=== PATIENT | female | born 1995 | race Asian ===

== ENCOUNTER 2023-01-01 20:21 | Emergency (ER) | payer MEDICAID, SELFPAY ==
[2023-01-01 20:44] VITALS: BP 106/58; PULSE 88; RESP 16; TEMP 36.9; O2SAT 98; BMI 21.9
--- NOTE | 2023-01-01 20:47 | ED.GENADULT ---
HPI - General Adult General Chief complaint: Abdominal Pain <Joshua Livingston - Last Filed: 01/01/23 20:48> Stated complaint: Abdominal Pain/ test? <Joshua Livingstno - Last Filed: 01/01/23 20:48> Time Seen by Provider: 01/02/23 01:22 <Joshua Livingston - Last Filed: 01/01/23 20:48> Source: patient <Ivana Lawrence MD - Last Filed: 01/02/23 01:43> Mode of arrival: ambulatory <Ivana Lawrence MD - Last Filed: 01/02/23 01:43> Limitations: no limitations <Ivana Lawrence MD - Last Filed: 01/02/23 01:43> History of Present Illness HPI narrative: Patient comes in the emergency room complaining of feeling nauseous with no vomiting for about 2 weeks. Patient states her last period was December 06. Patient states that she has mild dysuria, no flank pain no fever or chills. Patient states that she was recently treated for urinary tract infection. For [facility] records, patient was started on nitrofurantoin. However, patient was not sure if this was safe for as she suspects that she is . Patient stop taking nitrofurantoin a few days ago. <Ivana Lawrence MD - Last Filed: 01/02/23 01:43> Related Data Home medications: Previous Rx's Medication Instructions Recorded doxylamine 10 mg-pyridoxine (vit 1 tab PO BID PRN nausea and 01/02/23 B6) 10 mg tablet,delayed release vomiting #30 tabs nitrofurantoin 100 mg PO Q12H 7 days #14 caps 01/02/23 monohydrate/macrocrystals 100 mg capsule (Macrobid) vits no.130-ferrous fum 1 tab PO DAILY #30 tabs 01/02/23 27 mg iron-folic acid 800 mcg tablet ( Vitamin) <Joshua Livingston - Last Filed: 01/01/23 20:48> Allergies/adverse reactions: Allergies Allergy/AdvReac Type Severity Reaction Status Date / Time No Known Allergies Allergy Verified 01/01/23 20:45 <Joshua Livingston - Last Filed: 01/01/23 20:48> Review of Systems Review of Systems: Constitutional : No Weight loss, No Fever, No Chills, No Night Sweats, No Fatigue, No Malaise ENT/Mouth : No Hearing loss, No Ear Pain, No Nasal Congestion, No Sinus Pain, No Hoarseness, No sore throat, No Rhinorrhea, No Swallowing Difficulty Eyes: No Eye Pain, No Swelling, No Redness, No Foreign Body, No Discharge, No Vision Changes Cardiovascular : No Chest Pain, No SOB, No Dyspnea on Exertion, No Orthopnea, No Edema, No Palpitations Respiratory : No Cough, No Sputum, No Wheezing, No Smoke Exposure, No Dyspnea Gastrointestinal : Complaining of Nausea, No Vomiting, No Diarrhea, No Constipation, No abdominal Pain, No Hematochezia, No Melena Genitourinary : no irregular bleeding, complaining of Dysuria, No Urinary Frequency, No Hematuria, No Urinary Incontinence, No Urgency, No Flank Pain, No Urinary Flow Changes, No Hesitancy Musculoskeletal : No joint pain, No Myalgias, No Joint Swelling Skin : No Skin Lesions, No rash Neuro : No Weakness, No Numbness, No Paresthesias, No Loss of Consciousness, No Dizziness, No Headache Psych : No Anxiety/Panic, No Depression, No SI/HI/AH/VH, No Social Issues, Heme/Lymph: No Bruising, No Bleeding,No Lymphadenopathy Endocrine : No Polyuria, No Polydipsia, No Temperature Intolerance <Ivana Lawrence MD - Last Filed: 01/02/23 01:43> [facility] Social History Social History: Social History Advance Directives: No Advance Directives Information Provided: No <Joshua Livingston - Last Filed: 01/01/23 20:48> Physical Exam ED Vital Signs: Vital Signs - 24 hr 01/01/23 20:44 Temperature 98.4 F Pulse Rate 88 Respiratory Rate 16 Blood Pressure 106/58 L Pulse Oximetry 98 Oxygen Delivery Method Room Air BMI result Body Mass Index 21.9 <Joshua Livingston - Last Filed: 01/01/23 20:48> Vital Signs - 24 hr 01/01/23 20:44 Temperature 98.4 F Pulse Rate 88 Respiratory Rate 16 Blood Pressure 106/58 L Pulse Oximetry 98 Oxygen Delivery Method Room Air BMI result Body Mass Index 21.9 <Ivana Lawrence MD - Last Filed: 01/02/23 01:43> Const Other: Appearance: Alert. Oriented X3. No acute distress. Eyes: Pupils equal, round and reactive to light. ENT: Pharynx normal. Neck: Normal inspection. Neck supple. No lymph nodes noted. No crepitus CVS: Normal heart rate and rhythm. Pulses normal. Normal S1 and S2 Respiratory: No respiratory distress. Breath sounds normal. No Wheezing. No rales Abdomen: Soft and nontender. No rigidity. No distention. Skin: Skin warm and dry. Normal skin color. Normal skin turgor. Extremities: No lower extremity edema. No Lacerations. No Rash Neuro: Oriented X 3. No motor deficit. No sensory deficit. Moving all extremities. No slurred speech. CN 2 through 12 grossly intact Psych: calm, cooperative, normal affect <Ivana Lawrence MD - Last Filed: 01/02/23 01:43> Course Course Course Narrative: 27-year-old female presents for evaluation of lower abdominal pain and nausea x2 weeks. She reports her last menstrual cycle was in the 24th of last month. She would like a test <Joshua Livingston - Last Filed: 01/01/23 20:48> Medical Decision Making Medical Decision Making [facility] Narrative: -patient's hCG level is 140, approximately patient is 4 weeks . Patient is a , patient denies abdominal cramping, no vaginal spotting or bleeding, no discharge -patient will follow-up with OB Gyne, patient very happy with the news and her who is at bedside also. - <Ivana Lawrence MD - Last Filed: 01/02/23 01:43> Lab Data Result Diagrams: 01/01/23 22:15 01/01/23 22:15 <Joshua Livingston - Last Filed: 01/01/23 20:48> Labs: Lab Results 01/01/23 01/01/23 01/01/23 Range/Units 22:15 22:15 22:15 WBC 8.0 (4.8-10.8) X10*3/uL RBC 4.21 (4.20-5.50) X10*6/uL Hgb 12.4 (12.0-16.0) g/dl Hct 35.8 L (37.0-47.0) % MCV 85.0 (80.0-98.0) fL MCH 29.5 (27.0-33.0) pg MCHC 34.6 (31.0-35.0) g/dl RDW 11.7 (11.0-16.0) % Plt Count 282 (160-400) X10*3/uL MPV 10.3 (9.4-12.3) fL Immature Gran % (Auto) 0.4 (0.0-0.4) % Neut % (Auto) 49.3 (45-73) % Lymph % (Auto) 38.6 (20-40) % [place] % (Auto) 9.4 (2-11) % Eos % (Auto) 2.0 (0-4) % Baso % (Auto) 0.3 (0-2) % Lymph # (Auto) 3.1 (1.2-4.9) X10*3/uL [place] # (Auto) 0.8 (0.1-1.2) X10*3/uL Eos # (Auto) 0.2 (0.0-0.4) X10*3/uL Baso # (Auto) 0.0 (0.0-0.2) X10*3/uL Abs Immat Gran (auto) 0.03 (0.00-0.03) X10*3/uL Absolute Neuts (auto) 3.9 (2.0-8.3) x10*3/uL Absolute Nucleated RBC 0.000 (0.0-0.012) X10*3/uL Nucleated RBC % (auto) 0.0 (0.0-0.2) /100WBC Sodium 140 (135-145) mmol/L Potassium 4.1 (3.3-5.1) mmol/L Chloride 109 H (96-108) mmol/L Carbon Dioxide 25 (22-29) mmol/L Anion Gap 10 L (12-20) BUN 16 (9-16) mg/dL Creatinine 0.75 (0.5-1.4) mg/dL Estim Creat Clear Calc 89.8 Estimated GFR > 60 Random Glucose 86 (60-115) mg/dL Calcium 9.0 (8.4-10.2) mg/dL Total Bilirubin 0.4 (0.0-1.0) mg/dL AST 15 (5-31) U/L ALT 11 (0-31) U/L Alkaline Phosphatase 62 (39-117) U/L Total Protein 6.4 L (6.5-8.0) g/dL Albumin 4.2 (3.5-5.0) g/dL Lipase 18 (8-78) U/L Beta HCG, Quant 140 mIU/mL Urine Color Yellow Urine Appearance Clear Urine pH 6.0 (5.0-9.0) Ur Specific [place] 1.025 (1.005-1.025) Urine Protein Negative (Neg-Trace) mg/dL Urine Glucose (UA) Negative (Negative) mg/dL Urine Ketones Trace (Negative) mg/dL Urine Blood Negative (Negative) Urine Nitrite Negative (Negative) Ur Leukocyte Esterase Small (1+) H (Negative) Urine RBC 0-2 (0-2) /HPF Urine WBC 0-5 (0-5) /HPF Ur Squamous Epith Cells 6-10 (0-2) /HPF Urine Bacteria Trace (None Seen) Hyaline Casts 0-2 (0-2) /LPF <Joshua Livingston - Last Filed: 01/01/23 20:48> Lab Results 01/01/23 01/01/23 01/01/23 Range/Units 22:15 22:15 22:15 WBC 8.0 (4.8-10.8) X10*3/uL RBC 4.21 (4.20-5.50) X10*6/uL Hgb 12.4 (12.0-16.0) g/dl Hct 35.8 L (37.0-47.0) % MCV 85.0 (80.0-98.0) fL MCH 29.5 (27.0-33.0) pg MCHC 34.6 (31.0-35.0) g/dl RDW 11.7 (11.0-16.0) % Plt Count 282 (160-400) X10*3/uL MPV 10.3 (9.4-12.3) fL Immature Gran % (Auto) 0.4 (0.0-0.4) % Neut % (Auto) 49.3 (45-73) % Lymph % (Auto) 38.6 (20-40) % [place] % (Auto) 9.4 (2-11) % Eos % (Auto) 2.0 (0-4) % Baso % (Auto) 0.3 (0-2) % Lymph # (Auto) 3.1 (1.2-4.9) X10*3/uL [place] # (Auto) 0.8 (0.1-1.2) X10*3/uL Eos # (Auto) 0.2 (0.0-0.4) X10*3/uL Baso # (Auto) 0.0 (0.0-0.2) X10*3/uL Abs Immat Gran (auto) 0.03 (0.00-0.03) X10*3/uL Absolute Neuts (auto) 3.9 (2.0-8.3) x10*3/uL Absolute Nucleated RBC 0.000 (0.0-0.012) X10*3/uL Nucleated RBC % (auto) 0.0 (0.0-0.2) /100WBC Sodium 140 (135-145) mmol/L Potassium 4.1 (3.3-5.1) mmol/L Chloride 109 H (96-108) mmol/L Carbon Dioxide 25 (22-29) mmol/L Anion Gap 10 L (12-20) BUN 16 (9-16) mg/dL Creatinine 0.75 (0.5-1.4) mg/dL Estim Creat Clear Calc 89.8 Estimated GFR > 60 Random Glucose 86 (60-115) mg/dL Calcium 9.0 (8.4-10.2) mg/dL Total Bilirubin 0.4 (0.0-1.0) mg/dL AST 15 (5-31) U/L ALT 11 (0-31) U/L Alkaline Phosphatase 62 (39-117) U/L Total Protein 6.4 L (6.5-8.0) g/dL Albumin 4.2 (3.5-5.0) g/dL Lipase 18 (8-78) U/L Beta HCG, Quant 140 mIU/mL Urine Color Yellow Urine Appearance Clear Urine pH 6.0 (5.0-9.0) Ur Specific [place] 1.025 (1.005-1.025) Urine Protein Negative (Neg-Trace) mg/dL Urine Glucose (UA) Negative (Negative) mg/dL Urine Ketones Trace (Negative) mg/dL Urine Blood Negative (Negative) Urine Nitrite Negative (Negative) Ur Leukocyte Esterase Small (1+) H (Negative) Urine RBC 0-2 (0-2) /HPF Urine WBC 0-5 (0-5) /HPF Ur Squamous Epith Cells 6-10 (0-2) /HPF Urine Bacteria Trace (None Seen) Hyaline Casts 0-2 (0-2) /LPF <Ivana Lawrence MD - Last Filed: 01/02/23 01:43> Discharge Plan Discharge Clinical Impression: , UTI (urinary tract infection) <Joshua Livingston - Last Filed: 01/01/23 20:48> Patient Disposition: Home, Self-Care <Joshua Livingston - Last Filed: 01/01/23 20:48> Instructions: Urinary Tract Infection in (ED) <Joshua Livingston - Last Filed: 01/01/23 20:48> Additional Instructions: Please follow-up with your primary care physician tomorrow. If you have any worsening or new symptoms, please return to the emergency room or call 911 <Joshua Livingston - Last Filed: 01/01/23 20:48> Prescriptions: New doxylamine-pyridoxine (vit B6) 10-10 mg tablet,delayed release (DR/EC) 1 tab PO BID PRN (Reason: nausea and vomiting) Qty: 30 0RF Vitamin 27 mg iron- 800 mcg tablet 1 tab PO DAILY Qty: 30 0RF nitrofurantoin monohyd/m-cryst [Macrobid] 100 mg capsule 100 mg PO Q12H 7 Days Qty: 14 0RF Rx Instructions: must administer with a meal/food <Joshua Livingston - Last Filed: 01/01/23 20:48> Referrals: Gorge Delgado MD [Physician] - 01/06/23 <Joshua Livingston - Last Filed: 01/01/23 20:48>
[2023-01-01 22:24] LABS: MANUAL DIFF FLAG NO
[2023-01-01 22:27] LABS: Basophils Percent Auto 0.3 % (0-2); Eosinophils Absolute Auto 0.2 X10*3/uL (0.0-0.4); Hematocrit 35.8 % (37.0-47.0); Hemoglobin 12.4 g/dl (12.0-16.0); Imm Gran Abs Auto 0.03 X10*3/uL (0.00-0.03); Imm Gran Pct Auto 0.4 % (0.0-0.4); Lymphocytes Absolute Auto 3.1 X10*3/uL (1.2-4.9); Lymphocytes Percent Auto 38.6 % (20-40); Mean Corpuscular HGB Conc 34.6 g/dl (31.0-35.0); Mean Corpuscular Hemoglobin 29.5 pg (27.0-33.0); Mean Platelet Volume 10.3 fL (9.4-12.3); Monocytes Absolute Auto 0.8 X10*3/uL (0.1-1.2); Monocytes Percent Auto 9.4 % (2-11); Neutrophils Absolute Auto 3.9 x10*3/uL (2.0-8.3); Neutrophils Percent Auto 49.3 % (45-73); Platelet Count 282 X10*3/uL (160-400); Red Blood Count 4.21 X10*6/uL (4.20-5.50); Red Cell Distribution Width 11.7 % (11.0-16.0)
[2023-01-01 22:28] LABS: Appearance Urine Clear; Color Urine Yellow; Glucose Urine UA Negative (Negative); Leukocyte Esterase Urine Small (1+) (Negative); Nitrite Urine Negative (Negative); Specific Gravity - Urine 1.025 (1.005-1.025); UMIC TRIGGER UACC YES; Urine Blood Negative (Negative); Urine Ketones Trace mg/dL (Negative); Urine Protein Negative (Neg-Trace)
[2023-01-01 22:40] LABS: Bacteria Urine Trace (None Seen); Hyaline Casts Urine 0-2 /LPF (0-2); RBC Urine 0-2 /HPF (0-2); UACC Culture Trigger YES; WBC Urine 0-5 /HPF (0-5)
[2023-01-01 22:46] LABS: Alanine Aminotransferase 11 U/L (0-31); Albumin Level 4.2 g/dL (3.5-5.0); Alkaline Phosphatase 62 U/L (39-117); Anion Gap 10 (12-20); Aspartate Amino Transferase 15 U/L (5-31); Bilirubin Total 0.4 mg/dL (0.0-1.0); Blood Urea Nitrogen 16 mg/dL (9-16); Carbon Dioxide 25 mmol/L (22-29); Chloride 109 mmol/L (96-108); Creatinine Clr Calc Pharmacy 89.8; Estimated Glomerular Filt Rate > 60; Glucose Random 86 mg/dL (60-115); Lipase 18 U/L (8-78); Potassium 4.1 mmol/L (3.3-5.1); Sodium 140 mmol/L (135-145); Total Protein 6.4 g/dL (6.5-8.0)
[2023-01-01 22:47] LABS: HCG Quantitative 140 mIU/mL
[2023-01-02 02:00] VITALS: BP 112/62; PULSE 82; RESP 16; TEMP 36.7; O2SAT 98
== END 2023-01-02 02:01 | disposition home or self-care (01) ==
PROVIDERS: Physician Assistant; Emergency Provider Emergency Medicine
DX: O23.41 Unspecified infection of urinary tract in pregnancy, first trimester (principal); N39.0 Urinary tract infection, site not specified; Z3A.01 Less than 8 weeks gestation of pregnancy
CPT/HCPCS: 36415; 80053; 81001; 83690; 84702; 85025; 87086; 87088; 87186; 99283; 99284

== ENCOUNTER 2023-01-07 02:11 | Emergency (ER) | payer MEDICAID, SELFPAY ==
--- NOTE | ~2023-01-07 | US_ITS ---
EXAMINATION: US OBSTETRICAL ULTRASOUND CLINICAL INFORMATION: Left lower quadrant pain . 4 weeks . COMPARISON: None available.. LMP: 11/30/2022. Gestational age by maternal dates is 5 weeks 3 days. Estimated date of delivery by maternal dates is 09/06/2023. TECHNIQUE: Ultrasound of the maternal pelvis is performed using transabdominal and transvaginal transducers. Transvaginal imaging is performed due to inadequate visualization transabdominally. M-mode Doppler is also performed. FINDINGS: Retroverted uterus. The uterus measures 7.5 x 2.8 x 3.9 cm. Endometrial thickness of 1.2 cm. There is no intrauterine gestational sac identified. MATERNAL ADNEXA: The right maternal ovary measures 2.7 x 1.8 x 1.6 cm. 1.5 cm corpus luteum noted. The left maternal ovary measures 2.6 x 2.2 x 1.5 cm. There is no significant maternal adnexal mass. Small volume maternal pelvic ascites. Normal arterial and venous spectral waveforms are seen at both ovaries. US/US OB pelvic and transvaginal IMPRESSION: There is no intrauterine identified. No ectopic identified. Continued close follow-up recommended.
[2023-01-07 02:17] VITALS: BP 114/64; PULSE 88; RESP 18; TEMP 36.7; O2SAT 98; BMI 21.9
[2023-01-07 02:34] LABS: Basophils Percent Auto 0.4 % (0-2); Eosinophils Absolute Auto 0.2 X10*3/uL (0.0-0.4); Eosinophils Percent Auto 2.4 % (0-4); Hematocrit 38.1 % (37.0-47.0); Hemoglobin 12.8 g/dl (12.0-16.0); Imm Gran Abs Auto 0.03 X10*3/uL (0.00-0.03); Imm Gran Pct Auto 0.4 % (0.0-0.4); Lymphocytes Absolute Auto 3.8 X10*3/uL (1.2-4.9); Lymphocytes Percent Auto 45.8 % (20-40); MANUAL DIFF FLAG NO; Mean Corpuscular HGB Conc 33.6 g/dl (31.0-35.0); Mean Corpuscular Hemoglobin 28.9 pg (27.0-33.0); Mean Platelet Volume 10.3 fL (9.4-12.3); Monocytes Absolute Auto 0.7 X10*3/uL (0.1-1.2); Monocytes Percent Auto 8.3 % (2-11); Neutrophils Absolute Auto 3.6 x10*3/uL (2.0-8.3); Neutrophils Percent Auto 42.7 % (45-73); Platelet Count 302 X10*3/uL (160-400); Red Blood Count 4.43 X10*6/uL (4.20-5.50); Red Cell Distribution Width 11.7 % (11.0-16.0); White Blood Count 8.3 X10*3/uL (4.8-10.8)
--- NOTE | 2023-01-07 02:40 | ED.ABDPAIN ---
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 nausea no vomiting patient's blood type is O-positive Related Data Previous Rx's Medication Instructions Recorded doxylamine 10 mg-pyridoxine (vit 1 tab PO BID PRN nausea and 01/02/23 B6) 10 mg tablet,delayed release vomiting #30 tabs nitrofurantoin 100 mg PO Q12H 7 days #14 caps 01/02/23 monohydrate/macrocrystals 100 mg capsule (Macrobid) vits no.130-ferrous fum 1 tab PO DAILY #30 tabs 01/02/23 27 mg iron-folic acid 800 mcg tablet ( Vitamin) Allergies Allergy/AdvReac Type Severity Reaction Status Date / Time No Known Allergies Allergy Verified 01/01/23 20:45 Review of Systems Review of Systems Yes all other systems are reviewed and are negative [facility] Social History Social History Alcohol intake: never Smoked in Last 30 Days: No Use of substances other than those prescribed or required for medical reasons: No Advance Directives: No Patient : Yes Physical Exam ED Vital Signs: Vital Signs - 24 hr 01/07/23 02:17 01/07/23 05:14 Temperature 98.1 F 98.7 F Pulse Rate 88 85 Respiratory Rate 18 14 Blood Pressure 114/64 112/62 Pulse Oximetry 98 99 Oxygen Delivery Method Room Air Room Air BMI result Body Mass Index 21.9 Appearance: Alert. Oriented X3. No acute distress. Neck: Normal inspection. Neck supple. CVS: Normal heart rate and rhythm. Pulses normal. Respiratory: No respiratory distress. Equal air entry bilateral, Abdomen: Soft , Bowel sounds are present, no mass palpable, no CVA tenderness tenderness left lower quadrant with guarding no rebound tenderness Skin: Skin warm and dry. Normal skin color. Normal skin turgor. Extremities: No lower extremity edema. No calf tenderness Neuro: Oriented X 3. No motor deficit. Medical Decision Making Medical Decision Making [facility] Narrative: Patient with miscarriage hCG was 140 now 38 with no evidence of intrauterine or ectopic actively vaginal bleeding likely miscarriage patient advised of each Differential Diagnosis Ectopic /ovarian cyst Lab Data [facility] Lab Attestation statement: I reviewed the patient's lab results. 01/07/23 02:01/07/23 02:29 Labs: Lab Results 01/07/23 01/07/23 01/07/23 Range/Units 02: 02:29 02:29 WBC 8.3 (4.8-10.8) X10*3/uL RBC 4.43 (4.20-5.50) X10*6/uL Hgb 12.8 (12.0-16.0) g/dl Hct 38.1 (37.0-47.0) % MCV 86.0 (80.0-98.0) fL MCH 28.9 (27.0-33.0) pg MCHC 33.6 (31.0-35.0) g/dl RDW 11.7 (11.0-16.0) % Plt Count 302 (160-400) X10*3/uL MPV 10.3 (9.4-12.3) fL Immature Gran % (Auto) 0.4 (0.0-0.4) % Neut % (Auto) 42.7 L (45-73) % Lymph % (Auto) 45.8 H (20-40) % [place] % (Auto) 8.3 (2-11) % Eos % (Auto) 2.4 (0-4) % Baso % (Auto) 0.4 (0-2) % Lymph # (Auto) 3.8 (1.2-4.9) X10*3/uL [place] # (Auto) 0.7 (0.1-1.2) X10*3/uL Eos # (Auto) 0.2 (0.0-0.4) X10*3/uL Baso # (Auto) 0.0 (0.0-0.2) X10*3/uL Abs Immat Gran (auto) 0.03 (0.00-0.03) X10*3/uL Absolute Neuts (auto) 3.6 (2.0-8.3) x10*3/uL Absolute Nucleated RBC 0.000 (0.0-0.012) X10*3/uL Nucleated RBC % (auto) 0.0 (0.0-0.2) /100WBC Sodium 141 (135-145) mmol/L Potassium 3.7 (3.3-5.1) mmol/L Chloride 107 (96-108) mmol/L Carbon Dioxide 24 (22-29) mmol/L Anion Gap 14 (12-20) BUN 10 (9-16) mg/dL Creatinine 0.72 (0.5-1.4) mg/dL Estim Creat Clear Calc 93.6 Estimated GFR > 60 Random Glucose 97 (60-115) mg/dL Calcium 9.2 (8.4-10.2) mg/dL Total Bilirubin 0.7 (0.0-1.0) mg/dL Direct Bilirubin 0.2 (0.0-0.5) mg/dL AST 16 (5-31) U/L ALT 9 (0-31) U/L Alkaline Phosphatase 59 (39-117) U/L Total Protein 6.7 (6.5-8.0) g/dL Albumin 4.3 (3.5-5.0) g/dL Lipase 18 (8-78) U/L Beta HCG, Quant 38 mIU/mL Urine Color Urine Appearance Urine pH (5.0-9.0) Ur Specific [place] (1.005-1.025) Urine Protein (Neg-Trace) mg/dL Urine Glucose (UA) (Negative) mg/dL Urine Ketones (Negative) mg/dL Urine Blood (Negative) Urine Nitrite (Negative) Ur Leukocyte Esterase (Negative) Urine RBC (0-2) /HPF Urine WBC (0-5) /HPF Ur Squamous Epith Cells (0-2) /HPF Urine Bacteria (None Seen) Hyaline Casts (0-2) /LPF 01/07/23 Range/Units 02:43 WBC (4.8-10.8) X10*3/uL RBC (4.20-5.50) X10*6/uL Hgb (12.0-16.0) g/dl Hct (37.0-47.0) % MCV (80.0-98.0) fL MCH (27.0-33.0) pg MCHC (31.0-35.0) g/dl RDW (11.0-16.0) % Plt Count (160-400) X10*3/uL MPV (9.4-12.3) fL Immature Gran % (Auto) (0.0-0.4) % Neut % (Auto) (45-73) % Lymph % (Auto) (20-40) % [place] % (Auto) (2-11) % Eos % (Auto) (0-4) % Baso % (Auto) (0-2) % Lymph # (Auto) (1.2-4.9) X10*3/uL [place] # (Auto) (0.1-1.2) X10*3/uL Eos # (Auto) (0.0-0.4) X10*3/uL Baso # (Auto) (0.0-0.2) X10*3/uL Abs Immat Gran (auto) (0.00-0.03) X10*3/uL Absolute Neuts (auto) (2.0-8.3) x10*3/uL Absolute Nucleated RBC (0.0-0.012) X10*3/uL Nucleated RBC % (auto) (0.0-0.2) /100WBC Sodium (135-145) mmol/L Potassium (3.3-5.1) mmol/L Chloride (96-108) mmol/L Carbon Dioxide (22-29) mmol/L Anion Gap (12-20) BUN (9-16) mg/dL Creatinine (0.5-1.4) mg/dL Estim Creat Clear Calc Estimated GFR Random Glucose (60-115) mg/dL Calcium (8.4-10.2) mg/dL Total Bilirubin (0.0-1.0) mg/dL Direct Bilirubin (0.0-0.5) mg/dL AST (5-31) U/L ALT (0-31) U/L Alkaline Phosphatase (39-117) U/L Total Protein (6.5-8.0) g/dL Albumin (3.5-5.0) g/dL Lipase (8-78) U/L Beta HCG, Quant mIU/mL Urine Color Yellow Urine Appearance Clear Urine pH 6.5 (5.0-9.0) Ur Specific [place] 1.020 (1.005-1.025) Urine Protein Negative (Neg-Trace) mg/dL Urine Glucose (UA) Negative (Negative) mg/dL Urine Ketones Negative (Negative) mg/dL Urine Blood Large (3+) H (Negative) Urine Nitrite Negative (Negative) Ur Leukocyte Esterase Trace H (Negative) Urine RBC >20 H (0-2) /HPF Urine WBC 11-20 H (0-5) /HPF Ur Squamous Epith Cells 3-5 (0-2) /HPF Urine Bacteria None Seen (None Seen) Hyaline Casts 0-2 (0-2) /LPF Radiology Impression Discussion of test interpretation with radiology: I have reviewed the radiologist's reading. Radiologist Impression: IMPRESSION: There is no intrauterine identified. No ectopic Medications Administered Discontinued Medications Generic Name Dose Route Start Last Admin Trade Name Freq PRN Reason Stop Dose Admin Oxycodone HCl 5 mg 01/07/23 04:12 01/07/23 04:35 Oxycodone Hcl Immed Release 5 Mg Tablet PO 01/07/23 04:13 5 mg ONCE ONE Administration Discharge Plan Discharge Clinical Impression: Miscarriage, threatened, early Patient Disposition: Home, Self-Care Instructions: Threatened Miscarriage (ED) Additional Instructions: Likely have a miscarriage Follow-up with PCP/ObG in 2 days Report to the ER if worsening of pain Prescriptions: No Action doxylamine-pyridoxine (vit B6) 10-10 mg tablet,delayed release (DR/EC) 1 tab PO BID PRN (Reason: nausea and vomiting) Qty: 30 0RF Vitamin 27 mg iron- 800 mcg tablet 1 tab PO DAILY Qty: 30 0RF nitrofurantoin monohyd/m-cryst [Macrobid] 100 mg capsule 100 mg PO Q12H 7 Days Qty: 14 0RF Rx Instructions: must administer with a meal/food Referrals: Gorge Delgado MD [Physician] - 2 days Interventions: ED Discharge Assessment Last Done: 01/07/23 05:28 Discharge Date/Time: 01/07/23 05:29
[2023-01-07 02:49] LABS: Appearance Urine Clear; Color Urine Yellow; Glucose Urine UA Negative (Negative); Leukocyte Esterase Urine Trace (Negative); Nitrite Urine Negative (Negative); PH 6.5 (5.0-9.0); UMIC TRIGGER UACC YES; Urine Blood Large (3+) (Negative); Urine Ketones Negative (Negative); Urine Protein Negative (Neg-Trace)
[2023-01-07 02:58] LABS: HCG Quantitative 38 mIU/mL
[2023-01-07 03:00] LABS: Alanine Aminotransferase 9 U/L (0-31); Albumin Level 4.3 g/dL (3.5-5.0); Alkaline Phosphatase 59 U/L (39-117); Anion Gap 14 (12-20); Aspartate Amino Transferase 16 U/L (5-31); Bilirubin Direct 0.2 mg/dL (0.0-0.5); Bilirubin Total 0.7 mg/dL (0.0-1.0); Blood Urea Nitrogen 10 mg/dL (9-16); Calcium 9.2 mg/dL (8.4-10.2); Carbon Dioxide 24 mmol/L (22-29); Chloride 107 mmol/L (96-108); Creatinine Clr Calc Pharmacy 93.6; Estimated Glomerular Filt Rate > 60; Glucose Random 97 mg/dL (60-115); Lipase 18 U/L (8-78); Potassium 3.7 mmol/L (3.3-5.1); Sodium 141 mmol/L (135-145); Total Protein 6.7 g/dL (6.5-8.0)
[2023-01-07 03:15] LABS: Bacteria Urine None Seen (None Seen); Hyaline Casts Urine 0-2 /LPF (0-2); RBC Urine >20 /HPF (0-2); UACC Culture Trigger YES
--- NOTE | 2023-01-07 03:16 | PC.NURSE ---
Pt A&Ox4, reports intermittent LLQ pain since 2100 last night, then having some dark blood when using the BR x 3, describes the pain as sharp. Tender to LLQ. IV line established, blood work collected and sent to lab. Pt ambulated to BR with steady gait, urine sample collected and sent to lab.
[2023-01-07] MEDS: oxyCODONE HCl Immed Release 5 MG TABLET PO (04:35)
[2023-01-07 05:14] VITALS: BP 112/62; PULSE 85; RESP 14; TEMP 37.1; O2SAT 99
== END 2023-01-07 05:29 | disposition home or self-care (01) ==
PROVIDERS: Emergency Provider Internal Medicine
DX: O20.0 Threatened abortion (principal); Z3A.01 Less than 8 weeks gestation of pregnancy
CPT/HCPCS: 36415; 76801; 76817; 80048; 80076; 81001; 83690; 84702; 85025; 87086; 99284

== ENCOUNTER 2023-01-10 15:44 | Outpatient (REF) | payer OTHER, SELFPAY ==
[2023-01-10 17:52] LABS: HCG Quantitative 6 mIU/mL
== END 2023-01-10 15:45 | disposition home or self-care (01) ==
LOC: HO.LAB 15:44
PROVIDERS: Visit Provider Advanced Practice Midwife
DX: O20.0 Threatened abortion (principal)
CPT/HCPCS: 36415; 84702

== ENCOUNTER → 2023-01-13 12:54 | Outpatient (BNVA) | payer OTHER, SELFPAY | PROVIDERS: Visit Provider Advanced Practice Midwife ==

== ENCOUNTER 2023-01-17 15:12 | Outpatient (REF) | payer OTHER, SELFPAY ==
[2023-01-17 16:11] LABS: HCG Quantitative < 2 mIU/mL
== END 2023-01-17 15:13 | disposition home or self-care (01) ==
LOC: HO.LAB 15:12
PROVIDERS: PCP Internal Medicine; Visit Provider Advanced Practice Midwife
DX: O20.0 Threatened abortion (principal)
CPT/HCPCS: 36415; 84702

== ENCOUNTER 2023-03-01 21:42 | Emergency (ER) | payer OTHER, SELFPAY ==
[2023-03-01 21:45] VITALS: BP 113/64; PULSE 83; RESP 18; TEMP 36.3; O2SAT 97; BMI 21.9
[2023-03-01 22:18] LABS: MANUAL DIFF FLAG NO
[2023-03-01 22:21] LABS: Basophils Percent Auto 0.3 % (0-2); Eosinophils Absolute Auto 0.2 X10*3/uL (0.0-0.4); Hematocrit 39.1 % (37.0-47.0); Hemoglobin 13.1 g/dl (12.0-16.0); Imm Gran Abs Auto 0.03 X10*3/uL (0.00-0.03); Imm Gran Pct Auto 0.3 % (0.0-0.4); Lymphocytes Absolute Auto 2.4 X10*3/uL (1.2-4.9); Lymphocytes Percent Auto 24.8 % (20-40); Mean Corpuscular HGB Conc 33.5 g/dl (31.0-35.0); Mean Corpuscular Hemoglobin 29.2 pg (27.0-33.0); Mean Corpuscular Volume 87.1 fL (80.0-98.0); Monocytes Absolute Auto 0.7 X10*3/uL (0.1-1.2); Monocytes Percent Auto 7.5 % (2-11); Neutrophils Absolute Auto 6.3 x10*3/uL (2.0-8.3); Neutrophils Percent Auto 65.1 % (45-73); Platelet Count 278 X10*3/uL (160-400); Red Blood Count 4.49 X10*6/uL (4.20-5.50); White Blood Count 9.7 X10*3/uL (4.8-10.8)
[2023-03-01 22:22] LABS: Appearance Urine Clear; Color Urine Yellow; Glucose Urine UA Negative (Negative); Leukocyte Esterase Urine Large (3+) (Negative); Nitrite Urine Negative (Negative); PH 5.5 (5.0-9.0); UMIC TRIGGER UACC YES; Urine Blood Large (3+) (Negative); Urine Ketones Negative (Negative); Urine Protein Trace mg/dL (Neg-Trace)
[2023-03-01 22:24] LABS: Bacteria Urine None Seen (None Seen); Hyaline Casts Urine 0-2 /LPF (0-2); Squamous Epithelial Cell Urine 0-2 /HPF (0-2); UACC Culture Trigger YES; WBC Urine >50 /HPF (0-5)
[2023-03-01 22:40] LABS: Anion Gap 11 (12-20); Blood Urea Nitrogen 15 mg/dL (9-16); Calcium 9.5 mg/dL (8.4-10.2); Carbon Dioxide 26 mmol/L (22-29); Chloride 106 mmol/L (96-108); Creatinine Clr Calc Pharmacy 97.7; Estimated Glomerular Filt Rate > 60; Glucose Random 87 mg/dL (60-115); Sodium 139 mmol/L (135-145)
[2023-03-01 22:46] LABS: HCG Quantitative < 2 mIU/mL
--- NOTE | 2023-03-01 23:44 | ED_ITS ---
HPI - Abdominal Pain General Chief Complaint: Abdominal Pain Stated Complaint: Abd pain Time Seen by Provider: 03/01/23 23:27 Source: patient Mode of arrival: ambulatory Limitations: no limitations History of Present Illness HPI narrative: Patient comes to the emergency room complaining of suprapubic pain and dysuria for 2 days. Patient believes she is . Patient denies any abdominal cramping, states that she has been spotting today. Patient denies any flank pain, fever chills. Related Data Previous Rx's Medication Instructions Recorded doxylamine 10 mg-pyridoxine (vit 1 tab PO BID PRN nausea and 01/02/23 B6) 10 mg tablet,delayed release vomiting #30 tabs nitrofurantoin 100 mg PO Q12H 7 days #14 caps 01/02/23 monohydrate/macrocrystals 100 mg capsule (Macrobid) vits no.130-ferrous fum 1 tab PO DAILY #30 tabs 01/02/23 27 mg iron-folic acid 800 mcg tablet ( Vitamin) nitrofurantoin 100 mg PO Q12H 7 days #14 caps 03/01/23 monohydrate/macrocrystals 100 mg capsule (Macrobid) phenazopyridine 100 mg tablet 100 mg PO TID 6 doses #6 tabs 03/01/23 Allergies Allergy/AdvReac Type Severity Reaction Status Date / Time No Known Allergies Allergy Verified 03/01/23 21:45 Review of Systems Review of Systems Constitutional : No Weight loss, No Fever, No Chills, No Night Sweats, No Fatigue, No Malaise ENT/Mouth : No Hearing loss, No Ear Pain, No Nasal Congestion, No Sinus Pain, No Hoarseness, No sore throat, No Rhinorrhea, No Swallowing Difficulty Eyes: No Eye Pain, No Swelling, No Redness, No Foreign Body, No Discharge, No Vision Changes Cardiovascular : No Chest Pain, No SOB, No Dyspnea on Exertion, No Orthopnea, No Edema, No Palpitations Respiratory : No Cough, No Sputum, No Wheezing, No Smoke Exposure, No Dyspnea Gastrointestinal : No Nausea, No Vomiting, No Diarrhea, No Constipation, complaining of suprapubic pain worse with urination, No Hematochezia, No Melena Genitourinary : no irregular bleeding, complaining of dysuria No Urinary Frequency, No Hematuria, No Urinary Incontinence, No Urgency, No Flank Pain, No Urinary Flow Changes, No Hesitancy Musculoskeletal : No joint pain, No Myalgias, No Joint Swelling Skin : No Skin Lesions, No rash Neuro : No Weakness, No Numbness, No Paresthesias, No Loss of Consciousness, No Dizziness, No Headache Psych : No Anxiety/Panic, No Depression, No SI/HI/AH/VH, No Social Issues, Heme/Lymph: No Bruising, No Bleeding,No Lymphadenopathy Endocrine : No Polyuria, No Polydipsia, No Temperature Intolerance [facility] Social History Social History Alcohol intake: never Advance Directives: No Advance Directives Information Provided: No Physical Exam ED Vital Signs: Vital Signs - 24 hr 03/01/23 21:45 Temperature 97.3 F Pulse Rate 83 Respiratory Rate 18 Blood Pressure 113/64 Pulse Oximetry 97 Oxygen Delivery Method Room Air BMI result Body Mass Index 21.9 Const Other: Appearance: Alert. Oriented X3. No acute distress. Well-appearing Eyes: Pupils equal, round and reactive to light. ENT: Pharynx normal. Neck: Normal inspection. Neck supple. No lymph nodes noted. No crepitus CVS: Normal heart rate and rhythm. Pulses normal. Normal S1 and S2 Respiratory: No respiratory distress. Breath sounds normal. No Wheezing. No rales Abdomen: Soft and nontender. No rigidity. No distention. Skin: Skin warm and dry. Normal skin color. Normal skin turgor. Extremities: No lower extremity edema. No Lacerations. No Rash Neuro: Oriented X 3. No motor deficit. No sensory deficit. Moving all extremities. No slurred speech. CN 2 through 12 grossly intact Psych: calm, cooperative, normal affect Medical Decision Making Medical Decision Making MDM Narrative: -I discussed with the patient that her HCG levels are negative, patient is not . -patient does have a UTI, in the ED given Macrobid and phenazopyridine Lab Data 03/01/23 22:10 03/01/23 22:10 Labs: Lab Results 03/01/23 03/01/23 03/01/23 Range/Units 22:10 22:10 22:15 WBC 9.7 (4.8-10.8) X10*3/uL RBC 4.49 (4.20-5.50) X10*6/uL Hgb 13.1 (12.0-16.0) g/dl Hct 39.1 (37.0-47.0) % MCV 87.1 (80.0-98.0) fL MCH 29.2 (27.0-33.0) pg MCHC 33.5 (31.0-35.0) g/dl RDW 12.0 (11.0-16.0) % Plt Count 278 (160-400) X10*3/uL MPV 10.0 (9.4-12.3) fL Immature Gran % (Auto) 0.3 (0.0-0.4) % Neut % (Auto) 65.1 (45-73) % Lymph % (Auto) 24.8 (20-40) % [place] % (Auto) 7.5 (2-11) % Eos % (Auto) 2.0 (0-4) % Baso % (Auto) 0.3 (0-2) % Lymph # (Auto) 2.4 (1.2-4.9) X10*3/uL [place] # (Auto) 0.7 (0.1-1.2) X10*3/uL Eos # (Auto) 0.2 (0.0-0.4) X10*3/uL Baso # (Auto) 0.0 (0.0-0.2) X10*3/uL Abs Immat Gran (auto) 0.03 (0.00-0.03) X10*3/uL Absolute Neuts (auto) 6.3 (2.0-8.3) x10*3/uL Absolute Nucleated RBC 0.000 (0.0-0.012) X10*3/uL Nucleated RBC % (auto) 0.0 (0.0-0.2) /100WBC Sodium 139 (135-145) mmol/L Potassium 4.0 (3.3-5.1) mmol/L Chloride 106 (96-108) mmol/L Carbon Dioxide 26 (22-29) mmol/L Anion Gap 11 L (12-20) BUN 15 (9-16) mg/dL Creatinine 0.69 (0.5-1.4) mg/dL Estim Creat Clear Calc 97.7 Estimated GFR > 60 Random Glucose 87 (60-115) mg/dL Calcium 9.5 (8.4-10.2) mg/dL Beta HCG, Quant < 2 mIU/mL Urine Color Yellow Urine Appearance Clear Urine pH 5.5 (5.0-9.0) Ur Specific [place] 1.010 (1.005-1.025) Urine Protein Trace (Neg-Trace) mg/dL Urine Glucose (UA) Negative (Negative) mg/dL Urine Ketones Negative (Negative) mg/dL Urine Blood Large (3+) H (Negative) Urine Nitrite Negative (Negative) Ur Leukocyte Esterase Large (3+) H (Negative) Urine RBC 11-20 H (0-2) /HPF Urine WBC >50 H (0-5) /HPF Ur Squamous Epith Cells 0-2 (0-2) /HPF Urine Bacteria None Seen (None Seen) Hyaline Casts 0-2 (0-2) /LPF Discharge Plan Discharge Clinical Impression: UTI (urinary tract infection) Patient Disposition: Home, Self-Care Instructions: Urinary Tract Infection in Women (ED) Additional Instructions: Please follow-up with your primary care physician tomorrow. If you have any worsening or new symptoms, please return to the emergency room or call 911 Prescriptions: New nitrofurantoin monohyd/m-cryst [Macrobid] 100 mg capsule 100 mg PO Q12H 7 Days Qty: 14 0RF Rx Instructions: must administer with a meal/food phenazopyridine 100 mg tablet 100 mg PO TID Qty: 6 0RF No Action doxylamine-pyridoxine (vit B6) 10-10 mg tablet,delayed release (DR/EC) 1 tab PO BID PRN (Reason: nausea and vomiting) Qty: 30 0RF Vitamin 27 mg iron- 800 mcg tablet 1 tab PO DAILY Qty: 30 0RF nitrofurantoin monohyd/m-cryst [Macrobid] 100 mg capsule 100 mg PO Q12H 7 Days Qty: 14 0RF Rx Instructions: must administer with a meal/food
[2023-03-01 23:59] VITALS: BP 102/58; PULSE 81; RESP 17; TEMP 36.9; O2SAT 98
[2023-03-02] MEDS: Phenazopyridine HCL 100 MG TABLET PO (00:39)
[2023-03-02] MEDS: Nitrofurantoin Monohyd/M-Cryst 100 MG CAPSULE PO (00:40)
--- NOTE | 2023-03-02 00:44 | PC.NURSE ---
pt medicated according to mar. pt partner at bedside. pt ambulatory at discharge. pt provided with discharge packet. pt verbalized understanding of discharge plan
== END 2023-03-02 00:45 | disposition home or self-care (01) ==
PROVIDERS: Emergency Provider Emergency Medicine
DX: N39.0 Urinary tract infection, site not specified (principal); B96.20 Unspecified Escherichia coli [E. coli] as the cause of diseases classified elsewhere
CPT/HCPCS: 36415; 80048; 81001; 84702; 85025; 87086; 87088; 87186; 99283; 99284

== ENCOUNTER 2023-04-21 19:06 | Emergency (ER) | payer OTHER, SELFPAY ==
--- NOTE | ~2023-04-21 | US_ITS ---
EXAMINATION: US OBSTETRICAL ULTRASOUND CLINICAL INFORMATION: Left lower quadrant pain. COMPARISON: None available. LMP: 03/10/2023. Gestational age by maternal dates is 6 weeks. Estimated date of delivery by maternal dates is 12/15/2023. TECHNIQUE: Ultrasound of the maternal pelvis is performed using transabdominal and transvaginal transducers. Transvaginal imaging is performed due to inadequate visualization transabdominally. M-mode Doppler is also performed. FINDINGS: There is a single intrauterine gestational sac with visible yolk sac, embryo/fetus, and cardiac activity. There is no significant subchorionic hemorrhage or hematoma. HR: 105 beats per minute. CRL (crown rump length): 0.3 cm (6 weeks +/- 4 days). PAIGE (estimated date of delivery): 12/15/2023 +/- 4 days. MATERNAL ADNEXA: The right maternal ovary measures 2.3 x 1.3 x 1.3 cm. The left maternal ovary measures 2.3 x 1.5 x 1.9 cm. There is a 1.2 cm corpus luteal cyst in the left ovary. There is no significant maternal adnexal mass. No maternal pelvic ascites. US/US OB pelvic and transvaginal IMPRESSION: 1. Single intrauterine gestation with ultrasound gestational age of 6 weeks +/- 4 days. 2. Estimated date of delivery is 12/15/2023 +/- 4 days. 3. heart rate is within the lower limits of normal, possibly due to early gestational age, close attention on follow-up recommended. 4. No maternal adnexal mass or pelvic ascites.
[2023-04-21 19:12] VITALS: BP 118/63; PULSE 75; RESP 18; TEMP 36.6; O2SAT 99; BMI 34.3
--- NOTE | 2023-04-21 19:27 | ED.ABDPAIN ---
HPI - Abdominal Pain General Chief Complaint: Abdominal Pain Stated Complaint: abdominal pain/ Time Seen by Provider: 04/21/23 23:44 Source: patient and family () Mode of arrival: ambulatory History of Present Illness HPI narrative: 27-year-old female who is aware that she is and comes in with left pelvic discomfort but denies any fever, chills, nausea, vomiting and is having slight burning on urination. She has continued to eat and drink without difficulty. Related Data Previous Rx's Medication Instructions Recorded doxylamine 10 mg-pyridoxine (vit 1 tab PO BID PRN nausea and 01/02/23 B6) 10 mg tablet,delayed release vomiting #30 tabs nitrofurantoin 100 mg PO Q12H 7 days #14 caps 01/02/23 monohydrate/macrocrystals 100 mg capsule (Macrobid) vits no.130-ferrous fum 1 tab PO DAILY #30 tabs 01/02/23 27 mg iron-folic acid 800 mcg tablet ( Vitamin) nitrofurantoin 100 mg PO Q12H 7 days #14 caps 03/01/23 monohydrate/macrocrystals 100 mg capsule (Macrobid) phenazopyridine 100 mg tablet 100 mg PO TID 6 doses #6 tabs 03/01/23 nitrofurantoin 100 mg PO Q12H 7 days #14 caps 04/22/23 monohydrate/macrocrystals 100 mg capsule (Macrobid) Allergies Allergy/AdvReac Type Severity Reaction Status Date / Time No Known Allergies Allergy Verified 03/01/23 21:45 Review of Systems Review of Systems Pertinent positives and negatives as stated in HPI PMFSH Past Medical History Source: nursing notes reviewed Social History Social History Alcohol intake: never Advance Directives: No Advance Directives Information Provided: Yes Physical Exam ED Vital Signs: Vital Signs - 24 hr 04/21/23 19:12 04/22/23 00:01 Temperature 97.8 F Pulse Rate 75 64 Respiratory Rate 18 17 Blood Pressure 118/63 97/48 L Pulse Oximetry 99 97 Oxygen Delivery Method Room Air BMI result Body Mass Index 34.3 VITAL SIGNS: Reviewed. GENERAL: Well developed, well nourished, in no acute distress. HEAD: Normocephalic/atraumatic EYES: PERRLA, EOMI EARS: Ext canals without abnormality NOSE: Nares patent bilateral OROPHARYNX: no oral lesions noted, posterior pharynx clear NECK: Supple, no adenopathy LUNGS: Normal breath sounds. No adventitious sounds or accessory muscle use. SpO2<97> CARDIOVASCULAR: Regular rate and rhythm without noted murmurs ABDOMEN: Soft, non-tender, non-distended with bowel sounds. MUSCULOSKELETAL: No tenderness, deformities, or effusions noted on gross inspection. EXTREMITIES: No cyanosis, clubbing or edema. SKIN: Inspection of the skin reveals no rashes NEUROLOGIC: Alert and oriented x 4. Strength and sensation to light touch were grossly intact x 4. Course Course Course Narrative: This is an RME: Additional HPI, ROS, PE not included below will be deferred to primary provider. 27 year old female presents w/ LLQ pain X few day reports she recently had a miscarriage about few weeks ago, did not have surgery or pills, natural miscarriage she states. Reports she had a recent positive at home test about a week ago. Also reports diffuse headache. Plan labs, imaging, urine. Medical Decision Making Medical Decision Making [facility] Narrative: 27-year-old female with history and clinical presentation, DDX: UTI, , constipation, no clinical suspicion for cholecystitis/appendicitis/SBO. I reviewed all investigations, hematologic indices are grossly within normal limits as are chemistry indices. Beta hCG -70929, urinalysis suggestive of UTI and will be treated, ultrasound positive for IUP, patient appears well, EGA-6 weeks. All results and findings discussed with the patient and her at bedside and she is otherwise discharged home in stable condition with instructions to use strictly Tylenol for any headaches or pain, drink water, and take vitamins daily. Differential Diagnosis Differential Diagnoses: The differential diagnosis associated with the presentation includes Please see the discussion above Lab Data [facility] Lab Attestation statement: I reviewed the patient's lab results. Please see the discussion above 04/21/23 19:39 04/21/23 19:39 Labs: Lab Results 04/21/23 04/21/23 04/21/23 Range/Units 19:39 19:39 19:39 WBC 6.1 (4.8-10.8) X10*3/uL RBC 4.35 (4.20-5.50) X10*6/uL Hgb 12.7 (12.0-16.0) g/dl Hct 37.2 (37.0-47.0) % MCV 85.5 (80.0-98.0) fL MCH 29.2 (27.0-33.0) pg MCHC 34.1 (31.0-35.0) g/dl RDW 11.3 (11.0-16.0) % Plt Count 245 (160-400) X10*3/uL MPV 10.8 (9.4-12.3) fL Immature Gran % (Auto) 0.5 H (0.0-0.4) % Neut % (Auto) 53.2 (45-73) % Lymph % (Auto) 33.4 (20-40) % [place] % (Auto) 9.8 (2-11) % Eos % (Auto) 2.6 (0-4) % Baso % (Auto) 0.5 (0-2) % Lymph # (Auto) 2.1 (1.2-4.9) X10*3/uL [place] # (Auto) 0.6 (0.1-1.2) X10*3/uL Eos # (Auto) 0.2 (0.0-0.4) X10*3/uL Baso # (Auto) 0.0 (0.0-0.2) X10*3/uL Abs Immat Gran (auto) 0.03 (0.00-0.03) X10*3/uL Absolute Neuts (auto) 3.3 (2.0-8.3) x10*3/uL Absolute Nucleated RBC 0.000 (0.0-0.012) X10*3/uL Nucleated RBC % (auto) 0.0 (0.0-0.2) /100WBC Sodium 139 (135-145) mmol/L Potassium 3.5 (3.3-5.1) mmol/L Chloride 106 (96-108) mmol/L Carbon Dioxide 24 (22-29) mmol/L Anion Gap 13 (12-20) BUN 12 (9-16) mg/dL Creatinine 0.67 (0.5-1.4) mg/dL Estim Creat Clear Calc 68.0 Estimated GFR > 60 Random Glucose 96 (60-115) mg/dL Calcium 9.7 (8.4-10.2) mg/dL Magnesium 2.0 (1.6-2.6) mg/dL Total Bilirubin 0.5 (0.0-1.0) mg/dL AST 16 (5-31) U/L ALT 14 (0-31) U/L Alkaline Phosphatase 52 (39-117) U/L Total Protein 6.8 (6.5-8.0) g/dL Albumin 4.2 (3.5-5.0) g/dL Lipase 13 (8-78) U/L Beta HCG, Quant 63212 mIU/mL Urine Color Urine Appearance Urine pH (5.0-9.0) Ur Specific [place] (1.005-1.025) Urine Protein (Neg-Trace) mg/dL Urine Glucose (UA) (Negative) mg/dL Urine Ketones (Negative) mg/dL Urine Blood (Negative) Urine Nitrite (Negative) Ur Leukocyte Esterase (Negative) Urine RBC (0-2) /HPF Urine WBC (0-5) /HPF Ur Squamous Epith Cells (0-2) /HPF Urine Bacteria (None Seen) Hyaline Casts (0-2) /LPF COVID-19 (JORGE) (Negative) COVID-19 Clin Com Blood Type 04/21/23 04/21/23 04/21/23 Range/Units 19:39 19:39 19:46 WBC (4.8-10.8) X10*3/uL RBC (4.20-5.50) X10*6/uL Hgb (12.0-16.0) g/dl Hct (37.0-47.0) % MCV (80.0-98.0) fL MCH (27.0-33.0) pg MCHC (31.0-35.0) g/dl RDW (11.0-16.0) % Plt Count (160-400) X10*3/uL MPV (9.4-12.3) fL Immature Gran % (Auto) (0.0-0.4) % Neut % (Auto) (45-73) % Lymph % (Auto) (20-40) % [place] % (Auto) (2-11) % Eos % (Auto) (0-4) % Baso % (Auto) (0-2) % Lymph # (Auto) (1.2-4.9) X10*3/uL [place] # (Auto) (0.1-1.2) X10*3/uL Eos # (Auto) (0.0-0.4) X10*3/uL Baso # (Auto) (0.0-0.2) X10*3/uL Abs Immat Gran (auto) (0.00-0.03) X10*3/uL Absolute Neuts (auto) (2.0-8.3) x10*3/uL Absolute Nucleated RBC (0.0-0.012) X10*3/uL Nucleated RBC % (auto) (0.0-0.2) /100WBC Sodium (135-145) mmol/L Potassium (3.3-5.1) mmol/L Chloride (96-108) mmol/L Carbon Dioxide (22-29) mmol/L Anion Gap (12-20) BUN (9-16) mg/dL Creatinine (0.5-1.4) mg/dL Estim Creat Clear Calc Estimated GFR Random Glucose (60-115) mg/dL Calcium (8.4-10.2) mg/dL Magnesium (1.6-2.6) mg/dL Total Bilirubin (0.0-1.0) mg/dL AST (5-31) U/L ALT (0-31) U/L Alkaline Phosphatase (39-117) U/L Total Protein (6.5-8.0) g/dL Albumin (3.5-5.0) g/dL Lipase (8-78) U/L Beta HCG, Quant mIU/mL Urine Color Yellow Urine Appearance Clear Urine pH 6.5 (5.0-9.0) Ur Specific [place] 1.020 (1.005-1.025) Urine Protein Negative (Neg-Trace) mg/dL Urine Glucose (UA) Negative (Negative) mg/dL Urine Ketones Trace (Negative) mg/dL Urine Blood Negative (Negative) Urine Nitrite Negative (Negative) Ur Leukocyte Esterase Small (1+) H (Negative) Urine RBC 0-2 (0-2) /HPF Urine WBC 6-10 H (0-5) /HPF Ur Squamous Epith Cells 0-2 (0-2) /HPF Urine Bacteria None Seen (None Seen) Hyaline Casts 0-2 (0-2) /LPF COVID-19 (JORGE) Negative (Negative) COVID-19 Clin Com See Note Blood Type O Positive Radiology Impression Discussion of test interpretation with radiology: I have reviewed the radiologist's reading. Radiologist Impression: IUP, otherwise my interpretation is in agreement with radiology's impression. External Record Review External record reviewed: Outpatient record and Prior outpatient labs Medications Administered Discontinued Medications Generic Name Dose Route Start Last Admin Trade Name Freq PRN Reason Stop Dose Admin Nitrofurantoin Macrocrystals 100 mg 04/21/23 23:47 04/22/23 00:02 Nitrofurantoin Monohyd/M-Cryst 100 Mg Capsule PO 04/21/23 23:48 100 mg ONCE ONE Administration Discharge Plan Discharge Clinical Impression: Patient Disposition: Home, Self-Care Instructions: Vitamins (By mouth), (ED) Additional Instructions: 1. Start taking vitamins every day. 2. Follow-up with an yard switcher at your earliest convenience, drink plenty of water, take Tylenol for headaches or body aches, do not take ibuprofen/Motrin. 3. Complete the entire course of antibiotics as ordered. Return to the ER for any worsening symptoms. Prescriptions: New nitrofurantoin monohyd/m-cryst [Macrobid] 100 mg capsule 100 mg PO Q12H 7 Days Qty: 14 0RF Rx Instructions: must administer with a meal/food No Action doxylamine-pyridoxine (vit B6) 10-10 mg tablet,delayed release (DR/EC) 1 tab PO BID PRN (Reason: nausea and vomiting) Qty: 30 0RF Vitamin 27 mg iron- 800 mcg tablet 1 tab PO DAILY Qty: 30 0RF nitrofurantoin monohyd/m-cryst [Macrobid] 100 mg capsule 100 mg PO Q12H 7 Days Qty: 14 0RF Rx Instructions: must administer with a meal/food nitrofurantoin monohyd/m-cryst [Macrobid] 100 mg capsule 100 mg PO Q12H 7 Days Qty: 14 0RF Rx Instructions: must administer with a meal/food phenazopyridine 100 mg tablet 100 mg PO TID Qty: 6 0RF Referrals: Gorge Delgado MD [Physician] -
[2023-04-21 19:52] LABS: MANUAL DIFF FLAG NO
[2023-04-21 19:58] LABS: Basophils Percent Auto 0.5 % (0-2); Eosinophils Absolute Auto 0.2 X10*3/uL (0.0-0.4); Eosinophils Percent Auto 2.6 % (0-4); Hematocrit 37.2 % (37.0-47.0); Hemoglobin 12.7 g/dl (12.0-16.0); Imm Gran Abs Auto 0.03 X10*3/uL (0.00-0.03); Imm Gran Pct Auto 0.5 % (0.0-0.4); Lymphocytes Absolute Auto 2.1 X10*3/uL (1.2-4.9); Lymphocytes Percent Auto 33.4 % (20-40); Mean Corpuscular HGB Conc 34.1 g/dl (31.0-35.0); Mean Corpuscular Hemoglobin 29.2 pg (27.0-33.0); Mean Corpuscular Volume 85.5 fL (80.0-98.0); Mean Platelet Volume 10.8 fL (9.4-12.3); Monocytes Absolute Auto 0.6 X10*3/uL (0.1-1.2); Monocytes Percent Auto 9.8 % (2-11); Neutrophils Absolute Auto 3.3 x10*3/uL (2.0-8.3); Neutrophils Percent Auto 53.2 % (45-73); Platelet Count 245 X10*3/uL (160-400); Red Blood Count 4.35 X10*6/uL (4.20-5.50); Red Cell Distribution Width 11.3 % (11.0-16.0); White Blood Count 6.1 X10*3/uL (4.8-10.8)
[2023-04-21 20:00] LABS: Appearance Urine Clear; Color Urine Yellow; Glucose Urine UA Negative (Negative); Leukocyte Esterase Urine Small (1+) (Negative); Nitrite Urine Negative (Negative); PH 6.5 (5.0-9.0); UMIC TRIGGER UACC YES; Urine Blood Negative (Negative); Urine Ketones Trace mg/dL (Negative); Urine Protein Negative (Neg-Trace)
[2023-04-21 20:03] LABS: Bacteria Urine None Seen (None Seen); Hyaline Casts Urine 0-2 /LPF (0-2); RBC Urine 0-2 /HPF (0-2); Squamous Epithelial Cell Urine 0-2 /HPF (0-2); UACC Culture Trigger YES
[2023-04-21 20:24] LABS: Alanine Aminotransferase 14 U/L (0-31); Albumin Level 4.2 g/dL (3.5-5.0); Alkaline Phosphatase 52 U/L (39-117); Anion Gap 13 (12-20); Aspartate Amino Transferase 16 U/L (5-31); Bilirubin Total 0.5 mg/dL (0.0-1.0); Blood Urea Nitrogen 12 mg/dL (9-16); Calcium 9.7 mg/dL (8.4-10.2); Carbon Dioxide 24 mmol/L (22-29); Chloride 106 mmol/L (96-108); Estimated Glomerular Filt Rate > 60; Glucose Random 96 mg/dL (60-115); Lipase 13 U/L (8-78); Potassium 3.5 mmol/L (3.3-5.1); Sodium 139 mmol/L (135-145); Total Protein 6.8 g/dL (6.5-8.0)
[2023-04-21 20:41] LABS: COVID-19 Test Negative (Negative); IDNOW Serial# BCCEAD1C
[2023-04-21 20:53] LABS: HCG Quantitative 30094 mIU/mL
[2023-04-22 00:01] VITALS: BP 97/48; PULSE 64; RESP 17; O2SAT 97
[2023-04-22] MEDS: Nitrofurantoin Monohyd/M-Cryst 100 MG CAPSULE PO (00:02)
== END 2023-04-22 01:16 | disposition home or self-care (01) ==
PROVIDERS: Physician Assistant; Emergency Provider Student in an Organized Health Care Education/Training Program
DX: O26.91 Pregnancy related conditions, unspecified, first trimester (principal); R10.2 Pelvic and perineal pain; Z20.822 Contact with and (suspected) exposure to COVID-19; Z20.828 Contact with and (suspected) exposure to other viral communicable diseases; Z79.899 Other long term (current) drug therapy; Z3A.00 Weeks of gestation of pregnancy not specified
CPT/HCPCS: 76801; 76817; 80053; 81001; 81003; 83690; 83735; 84702; 85025; 86900; 86901; 87086; 87635; 99283; 99284

== ENCOUNTER 2023-04-30 08:34 | Outpatient (AMB) | payer OTHER, SELFPAY ==
--- NOTE | 2023-04-30 08:43 | MHC.OFFVIS ---
Intake Vital Signs 04/30/23 08:47 Height 5 ft 2.2 in Weight 115 lb BMI 20.9 BP 102/50 L Intake Visit Reasons: preg consult ok per salesperson jewelry Note: The patient agreed to use of a medical research scientist during this encounter. Scribed for QUAN Dent by Sherry Grace medical research scientist, on 04/30/2023 at 8:55 am EST. Fireworks Display Specialist Required: No Accompanied by: Family/Other Allergies No Known Allergies Allergy (Verified 04/30/23 08:49) Is last menstrual period known: Yes Last menstrual period: 03/10/23 Post menopausal: No Patient : Yes HPI HPI Comments History of Present Illness Details She is here for consult with her friend Lia who spoke on her behalf throughout the visit. LMP 03/10/23. History of SAB 12/2022. Taking OTC PNV. Limited dietary intake due to nausea. Admits weight loss. Did not obtain B6 after ED visit. Has purchased Unisom, but not taking due to nausea. C/o lower right sided pain, worse at night. Seen in ED for left sided abdominal pain on 04/21/23. She reports pain shifts from each side. She denies any VB, constipation, diarrhea or urinary symptoms. History of UTI treated. Complains of bug bites on skin. Pelvic exam offered; she declines. Traveling to [place] this week, out of state until the end of the month. [facility] Medical History Early stage of Missed menses Pelvic pain in Positive test Social History Alcohol intake: never Female Reproductive History Menstrual Age of Menarche: 15 Duration of menses: 6-7 days Date of last menstrual period: 03/10/23 control method: none Total pregnancies: 2 Ab spontaneous: 1 Physical Exam Vital Signs: Last Vital Signs BP 102/50 L 04/30/23 08:47 BMI result Body Mass Index 20.9 Const General: cooperative, healthy appearing, comfortable, no acute distress, well developed, alert and awake Results AMB Test Urine AMB Test Urine Positive Last Edit by RUDDY Santiago on 04/30/23 08:54 Results Reviewed Results Reviewed: Laboratory Last Values [facility]st Clinic Positive 04/30/23 08:54 EXAMINATION:? US OBSTETRICAL ULTRASOUND CLINICAL INFORMATION:? Left lower quadrant pain. COMPARISON:? None available.? LMP: 03/10/2023. Gestational age by maternal dates is 6 weeks. Estimated date of delivery by maternal dates is 12/15/2023. TECHNIQUE: Ultrasound of the maternal pelvis is performed using transabdominal and transvaginal transducers. Transvaginal imaging is performed due to inadequate visualization transabdominally. M-mode Doppler is also performed. ? FINDINGS: There is a single intrauterine gestational sac with visible yolk sac, embryo/fetus, and cardiac activity.? There is no significant subchorionic hemorrhage or hematoma. HR:? 105 beats per minute. CRL (crown rump length): ? 0.3 cm (6 weeks +/- 4 days). PAIGE (estimated date of delivery):? 12/15/2023 +/- 4 days. ? MATERNAL ADNEXA: ? ? The right maternal ovary measures 2.3 x 1.3 x 1.3 cm. The left maternal ovary measures 2.3 x 1.5 x 1.9 cm. There is a 1.2 cm corpus luteal cyst in the left ovary. There is no significant maternal adnexal mass. No maternal pelvic ascites. US/US OB pelvic and transvaginal IMPRESSION: 1. Single intrauterine gestation with ultrasound gestational age of? 6 weeks +/- 4 days. 2. Estimated date of delivery is 12/15/2023 +/- 4 days. 3. heart rate is within the lower limits of normal, possibly due to early gestational age, close attention on follow-up recommended. 4. No maternal adnexal mass or pelvic ascites. Assessment & Plan Assessment & Plan (1) Missed menses: Code(s): N92.6 - Irregular menstruation, unspecified Plan: Discussed: Abd. pain causes: GI, or related. Schedule repeat US- early gestation, confirm viability. Advised to eat small frequent meals, crackers/dry foods, avoid anything spicy or greasy foods to help with nausea, and stay cool and hydrated w/heat wave. If unable to keep food or fluids down, report to or office for sooner evaluation. B6 Rx dose written out on notepad to purchase OTC, advised TID. Reviewed when to call for any VB. Requested info re: bug repellant- use of OTC anti itch cream for bug bites/safe bug spray i.e. for children's use. PNC options reviewed. Lia suggests she go [place] [facility] [place] [facility] [place] Discussed to call the service here for any emergencies/deliveries to be directed to [facility]. TV for follow up US. Inform office when date of [facility] [place]. (2) Positive test: Code(s): Z32.01 - Encounter for test, result positive (3) Early stage of : Code(s): Z34.90 - Encounter for supervision of normal , unspecified, unspecified trimester (4) Pelvic pain in : Code(s): O26.899 - Other specified related conditions, unspecified trimester; R10.2 - Pelvic and perineal pain Orders: Orders AMB HCG Urine Test Today Z32.01 - Encounter for test, result positive Coding Level of Care Code Est Pt Level 3 (62886) Diagnoses Missed menses N92.6 Positive test Z32.01 Early stage of Z34.90 Pelvic pain in O26.899; R10.2
[2023-04-30 08:47] VITALS: BP 102/50; BMI 20.9
== END 2023-04-30 09:32 | disposition home or self-care (01) ==
PROVIDERS: Visit Provider Advanced Practice Midwife
DX: N92.6 Irregular menstruation, unspecified (principal); Z32.01 Encounter for pregnancy test, result positive; O26.899 Other specified pregnancy related conditions, unspecified trimester; R10.2 Pelvic and perineal pain
CPT/HCPCS: 99213

== ENCOUNTER → 2023-04-30 08:34 | Outpatient (BNVA) | payer OTHER, SELFPAY | PROVIDERS: Visit Provider Advanced Practice Midwife | DX: Z32.01 Encounter for pregnancy test, result positive (principal); O26.899 Other specified pregnancy related conditions, unspecified trimester; R10.2 Pelvic and perineal pain; N92.6 Irregular menstruation, unspecified | CPT/HCPCS: 81025; 99212 ==

== ENCOUNTER 2023-04-30 09:51 | Outpatient (REF) | payer OTHER, SELFPAY ==
--- NOTE | ~2023-04-30 | US_ITS ---
EXAMINATION: US OBSTETRICAL ULTRASOUND CLINICAL INFORMATION: Encounter for supervision of normal , no heart rate COMPARISON: Obstetrical ultrasound 04/21/2023 LMP: 03/10/2023. Gestational age by maternal dates is 7 weeks 2 days. Estimated date of delivery by maternal dates is 12/15/2023. TECHNIQUE: Ultrasound of the maternal pelvis is performed using transabdominal transducer. The patient refused transvaginal imaging. MLO Doppler is also performed. FINDINGS: There is a single intrauterine gestational sac with visible yolk sac, embryo/fetus, and cardiac activity. There is no significant subchorionic hemorrhage or hematoma. HR: 143 beats per minute. CRL (crown rump length): 1.2 cm (7 weeks 3 days +/- 4 days). PAIGE (estimated date of delivery): 12/14/2023 +/- 4 days. MATERNAL ADNEXA: The right maternal ovary measures 1.9 x 1.0 x 2.3 cm. The right ovary is normal in appearance. The left maternal ovary measures 2.9 x 2.1 x 2.6 cm. The left ovary is normal in appearance. There is no significant maternal adnexal mass. No maternal pelvic ascites. US/US OB <= 14 weeks fetus IMPRESSION: 1. Single intrauterine gestation with ultrasound gestational age of 7 weeks 3 days +/- 4 days. 2. Estimated date of delivery is 12/14/2023 +/- 4 days. 3. Normal heart rate.
== END 2023-04-30 09:52 | disposition home or self-care (01) ==
LOC: HO.US 09:51
PROVIDERS: Visit Provider Advanced Practice Midwife
DX: O26.891 Other specified pregnancy related conditions, first trimester (principal); R10.2 Pelvic and perineal pain; Z3A.01 Less than 8 weeks gestation of pregnancy
CPT/HCPCS: 76801

== ENCOUNTER 2023-05-27 11:15 | Emergency (ER) | payer OTHER, SELFPAY ==
--- NOTE | 2023-05-27 11:42 | ED.GENADULT ---
HPI - General Adult General Chief complaint: Wound/Laceration Stated complaint: Finger lac from sewing machine Time Seen by Provider: 05/27/23 12:45 Source: patient and RN notes reviewed Mode of arrival: ambulatory Limitations: no limitations History of Present Illness HPI narrative: This is a 27 year old female, 12 weeks , presenting to the ER with complaints of laceration to right second digit since today. She sates that she was using a sewing machine at work when suddlenly the sewing machine lacerated her right second finger. She is not up to date with any of her vaccinations. She reports some pain to the laceration. Denies taking any medications prior to her arrival in the ER. No numbness, tingling or weakness. No other complaints or concerns at this time. MD complaint: R finger laceration Onset (ago): hour(s) Location: upper extremity Radiation: non-radiation Severity: mild Quality: aching Pain Consistency: constant Relieving factors: none Exacerbating factors: none Associated symptoms: denies other symptoms Treatments prior to arrival: none Related Data Home Medications Medication Instructions Recorded Confirmed doxylamine succinate 25 mg tablet 25 mg PO BEDTIME PRN 04/30/23 (Unisom (doxylamine)) Previous Rx's Medication Instructions Recorded vits no.130-ferrous fum 1 tab PO DAILY #30 tabs 01/02/23 27 mg iron-folic acid 800 mcg tablet ( Vitamin) Allergies Allergy/AdvReac Type Severity Reaction Status Date / Time No Known Allergies Allergy Verified 04/30/23 08:49 Review of Systems Review of Systems: Yes all other systems are reviewed and are negative Constitutional: Constitutional: Reports as per [facility] Past Medical History Attestation statement: The following information was validated with the patient. Medical History Early stage of Missed menses Pelvic pain in Positive test Social History Social History Alcohol intake: never Advance Directives: No Advance Directives Information Provided: Yes Physical Exam ED Vital Signs: Vital Signs - 24 hr 05/27/23 11:43 Temperature 98.1 F Pulse Rate 73 Respiratory Rate 18 Blood Pressure 120/57 L Pulse Oximetry 95 Oxygen Delivery Method Room Air BMI result Body Mass Index 22.2 Const General: cooperative, comfortable and no acute distress Orientation/consciousness: patient oriented x3 Limitations: no limitations HENMT Head: Yes normal to inspection, Yes normocephalic and Yes atraumatic Ears: hearing grossly normal bilaterally General nose exam: Normal external nose present Face and sinus: Yes normal facial exam Mouth: Normal oral and palatal mucosa present, oropharynx normal and moist mucous membranes Throat: Yes posterior oropharynx normal Eyes General: appearance normal, both eyes and all related structures Eyelids: Yes eyelids normal Conjunctivae: conjunctivae normal Sclerae: sclerae normal Pupils: Equal, round and reactive pupils present EOM: EOMs intact bilaterally Neck Neck: Yes normal visual inspection, Yes full ROM and Yes no lymphadenopathy Lymphatic: no lymphadenopathy noted Chest Chest palpation & inspection: normal inspection of the chest Resp Effort & Inspection: normal respiratory effort and able to speak in complete sentences Auscultation: clear to auscultation bilaterally, no crackles, no rales, no rhonchi and no wheezes Cardio Rate: regular rate Rhythm: regular rhythm Heart sounds: S1 normal heart sound present and S2 normal heart sound present GI Inspection: Yes normal to inspection Skin Other: Right second digit, overlying distal MCP, there is a superficial laceration noted, with 1/4 nailbed laceration. Full ROM of the second digit. Mild TTP. General skin exam: no rashes or lesions noted Trauma: no lacerations or abrasions Wounds: no wounds Neuro General: patient oriented x3 and moves all extremities Cranial nerves: Yes Equal, round and reactive pupils present Extrem General: Yes normal to inspection Right upper extremity: normal to inspection Left upper extremity: normal to inspection Right lower extremity: normal to inspection Left lower extremity: normal to inspection Course Course Course Narrative: This is an RME: Additional HPI, ROS, PE not included below will be deferred to primary provider. Patient is a 27 year old 3 month female presenting with an injury of the right index finger. She explains that she was using a sewing machine and the needle caught her finger and broke the nail. She cannot recall her last tetanus vaccine. Plan: imaging Procedures Procedure Narrative Procedure Narrative: Right second digit soaked in betadine and saline. Wound closed using dermabond. Pt tolerated procedure well without complications. Dressed with nonstick dressing. Medical Decision Making Medical Decision Making MDM Narrative: 27 y/o F presenting to the ER with complaints of laceration to right second finger since today. On arrival vital signs are WNL. Laceration is superfiical and was soaked with betadine and closed using skin glue. She reports that she is not UTD with vaccinations and did not receive vaccinations as a child. I recommended TDAP today, however patient declines despite knowing risks of tetanus. I also advised pt that we are unable to discern whether patient has a bone fracture underneath laceration, especially given some TTP in this area. Pt declines xray. I advised that because we are unable to determine whether or not there is a bone fracture underneath laceration I would recommend course of antibiotics, in case this is an open fracture, pt declines prescription for abx. I urged the importance of returning if she develops any signs of infection. Pt understands and agreed with plan. She is stable for D/C. Differential Diagnosis Differential Diagnoses: The differential diagnosis associated with the presentation includes Laceration foreign body frature contusion Discharge Plan Discharge Clinical Impression: Laceration of finger nail bed Patient Disposition: Home, Self-Care Instructions: Laceration Without Closure (ED) Additional Instructions: Please do not submerge wound in water, pat dry if it becomes wet. Watch for any signs of infection including but not limited to increased redness, swelling, fevers chills or drainage. If any new or worsening symptoms occur please return for re-evaluation. Follow-up with your primary care physician regarding this visit. Prescriptions: No Action Vitamin 27 mg iron- 800 mcg tablet 1 tab PO DAILY Qty: 30 0RF Unisom (doxylamine) 25 mg tablet 25 mg PO BEDTIME PRN Interventions: ED Discharge Assessment Last Done: 05/27/23 13:57 Discharge Date/Time: 05/27/23 13:57
[2023-05-27 11:43] VITALS: BP 120/57; PULSE 73; RESP 18; TEMP 36.7; O2SAT 95; BMI 22.2
== END 2023-05-27 13:57 | disposition home or self-care (01) ==
PROVIDERS: Emergency Provider Emergency Medicine
DX: S61.310A Laceration without foreign body of right index finger with damage to nail, initial encounter (principal); W45.8XXA Other foreign body or object entering through skin, initial encounter; W29.2XXA Contact with other powered household machinery, initial encounter; Y93.89 Activity, other specified; Y92.9 Unspecified place or not applicable; Y99.0 Civilian activity done for income or pay
CPT/HCPCS: 12001; 99282

== ENCOUNTER 2024-05-17 06:03 | Outpatient (REF) | payer OTHER, SELFPAY ==
[2024-05-17 08:40] LABS: Syphilis Screen Nonreactive (Nonreactive)
[2024-05-20 00:09] LABS: TS Negative Control Passed; TS Panel A 0; TS Panel B 0; TS Positive Control Passed; TSpotTB Negative (Negative)
== END 2024-05-17 06:04 | disposition home or self-care (01) ==
LOC: HO.LAB 06:03
PROVIDERS: Visit Provider Internal Medicine
DX: Z02.89 Encounter for other administrative examinations (principal)
CPT/HCPCS: 36415; 86481; 86780